=== PATIENT | male | born 1955 | race Caucasian/White ===

== ENCOUNTER 2017-03-31 13:43 | Outpatient (CLI) | payer OTHER ==
[2017-03-31 14:28] LABS: HIVRAP NEG QC NEGATIVE (Negative); HIVRAP POS QC POSITIVE (Positive)
== END 2017-03-31 13:44 | disposition home or self-care (01) ==
LOC: LAB 13:43
DX: Z77.21 Contact with and (suspected) exposure to potentially hazardous body fluids (principal)
CPT/HCPCS: 36415; 86803; 87340; 87389